=== PATIENT | female | born 1995 | race Caucasian/White ===

== ENCOUNTER → 2020-06-24 11:56 | Outpatient (CLI) | payer OTHER, SELFPAY ==
[2020-06-24 12:44] LABS: COVID19 -Nasal RAPID Negative (Negative)
== END ==
PROVIDERS: PCP Nurse Practitioner Family; Visit Provider Physician Assistant
DX: Z20.828 Contact with and (suspected) exposure to other viral communicable diseases (principal); R50.9 Fever, unspecified
CPT/HCPCS: 87635